=== PATIENT | male | born 1980 | race Caucasian/White ===

== ENCOUNTER 2016-10-28 13:32 | Emergency (ER) | payer OTHER ==
[2016-10-28 13:42] VITALS: BP 131/76; PULSE 78; RESP 18; TEMP 98.2; O2SAT 96
--- NOTE | 2016-10-28 14:37 | EDPHY ---
H & P Stated Complaint: Hemorrhoid problem since Tuesday; bleeding today after running Time Seen by Provider: 10/28/16 14:37 - Personal History Current Tetanus Diphtheria and Acellular Pertussis (TDAP): Yes - Medical/Surgical History Other PMH: healthy per pt - Social History Smoking Status: Former smoker Constitutional: Initial Vital Signs Temperature (C) 36.8 C 10/28/16 13:35 Heart Rate 78 10/28/16 13:35 Respiratory Rate 18 10/28/16 13:35 Blood Pressure 131/76 H 10/28/16 13:35 O2 Sat (%) 96 10/28/16 13:35 O2 Delivery Mode Room Air Allergies/Adverse Reactions: No Known Allergies Allergy (Unverified 10/28/16 13:42) Home Medications: Medication Instructions Recorded NK [No Known Home Meds] 10/28/16 Medical Decision Making ED Course/Re-evaluation: CHIEF COMPLAINT: Rectal bleeding. HISTORY OF PRESENT ILLNESS: The patient is a 36-year-old male who presents with rectal bleeding since this morning. He has a remote history of hemorrhoids and reports this feels exactly the same. He denies abdominal pain, constipation, dizziness, lightheadedness, or other complaints. REVIEW OF SYSTEMS: A 10 point review of systems was performed and is negative with the exception of the elements mentioned in the history of present illness. PHYSICAL EXAM: HR, BP, O2 Sat, RR. Temp noted General Appearance: Alert, well hydrated, appropriate, and non-toxic appearing. Head: Atraumatic without scalp tenderness or obvious injury Eyes: Pupils equal, round, reactive to light and accommodation, EOMI, no trauma , no injection. Ears: Clear bilaterally, no perforation, normal landmarks Nose: Atraumatic, no rhinorrhea, clear. Throat: There is no erythema or exudates, no lesions, normal tonsils, mucus membranes moist. Neck: Supple, 2+ carotid upstroke, nontender, no lymphadenopathy. Respiratory: No retractions, no distress, no wheezes, and no accessory muscle use. Lungs are clear to auscultation bilaterally. Cardiovascular: Regular rate and rhythm, no murmurs, rubs, or gallops. Bilateral carotid, radial, dorsalis pedis, and posterior tibial pulses intact. Good capillary refill all extremities. Gastrointestinal: Abdomen is soft, nontender, non-distended, no masses, no rebound, no guarding, no peritoneal signs. Rectal: external thrombosed hemorrhoid. Musculoskeletal: Normal active ROM of all extremities, atraumatic. Neurological: Alert, appropriate, and interactive. The patient has normal DTRs and non-focal cranial nerves, motor, sensory, and cerebellar exam. Skin: No rashes, good turgor, no nodules on palpation. Past medical history: Hemorrhoids (external and internal). Past surgical history: Denies. Family history: N/A. Social history: Does not abuse alcohol or drugs. DIFFERENTIAL DIAGNOSIS: The differential diagnosis includes but is not limited to: internal hemorrhoid, external hemorrhoid, lower GI bleed, upper GI bleed. MEDICAL DECISION MAKIN-year-old male presents with rectal bleeding. He does have a past history of hemorrhoids and this is the exact same presentation as before. On exam he has an external thrombosed hemorrhoid. I will place Surgicel foam on the hemorrhoid and he will be discharged. He is comfortable with this plan. Departure - Departure Disposition: Home, Routine, Self-Care Clinical Impression: External hemorrhoid, thrombosed Condition: Good Instructions: Thrombosed Hemorrhoid (ED) Additional Instructions: Follow up with your primary care provider for reevaluation. If you need a PCP you have been given the name of the on-call outpatient medicine doctor. Return for any serious worsening of condition. Referrals: Kyler Pulido MD [Medical Doctor] - As per Instructions Report Scribed for: Amado Reyes Report Scribed by: Que Early Date of Report: 10/28/16 Time of Report: 14:40
== END 2016-10-28 15:17 | disposition home or self-care (01) ==
DX: K64.5 Perianal venous thrombosis (principal); Z87.891 Personal history of nicotine dependence